=== PATIENT | female | born 1965 | race Caucasian/White ===

== ENCOUNTER 2018-09-04 12:25 | Emergency (ER) | payer BC ==
[2018-09-04 12:51] VITALS: BP 125/64
--- NOTE | 2018-09-04 13:06 | UC ---
Throat Pain/Nasal Bimal HPI - HPI Summary HPI Summary: 53 year old female presents with onset of sore throat 5 days ago. States sore throat subsided but has developed nasal congestion, yellow nasal drainage, sinus pressure, and occasional productive cough for yellow sputum over past 4 days. Denies fever, chills, ear pain, dysphagia, chest pain, SOB, wheezing, abdominal pain, nausea, or vomiting. Patient is a 1 PPD smoker. - History of Current Complaint Chief Complaint: UCRespiratory Stated Complaint: SINUS COMPLAINT Time Seen by Provider: 09/04/18 12:59 Hx Obtained From: Patient Hx Last Menstrual Period: Age 40 Onset/Duration: Gradual Onset, Lasting Days - 5 Severity: Moderate Pain Intensity: 7 Cough: Productive Associated Signs & Symptoms: Positive: Sinus Discomfort, Nasal Discharge. Negative: Dysphagia, Wheezing, Hoarseness, Fever, Vomiting, Rash - Allergies/Home Medications Allergies/Adverse Reactions: Allergies Allergy/AdvReac Type Severity Reaction Status Date / Time No Known Allergies Allergy Verified 09/04/18 12:46 Home Medications: Home Medications Metoprolol Tartrate TAB* [Lopressor TAB*] 1 tab DAILY 09/04/18 [History Confirmed 09/04/18] Propafenone HCl [Propafenone HCl ER] 1 cap BID 09/04/18 [History Confirmed 09/04] PMH/Surg Hx/FS Hx/Imm Hx Previously Healthy: Yes Other Cardiovascular History: AV node re-entrant tachycardia - Surgical History Surgical History: Yes Surgery Procedure, Year, and Place: Cardiac Ablation - Family History Family History: Noncontributory - Social History Occupation: Employed Full-time Lives: With Family Alcohol Use: Rare Substance Use Type: None Smoking Status (MU): Heavy Every Day Tobacco Smoker Amount Used/How Often: 1 ppd Length of Time of Smoking/Using Tobacco: started ~ age 10 When Did the Patient Quit Smoking/Using Tobacco: on Chantix now Household Exposure Type: Cigarettes - Immunization History Most Recent Tetanus Shot: unsure Review of Systems Constitutional: Negative Skin: Negative Eyes: Negative ENT: Sore Throat, Nasal Discharge, Sinus Congestion, Sinus Pain/Tenderness Respiratory: Cough Cardiovascular: Negative Gastrointestinal: Negative Is Patient Immunocompromised?: No All Other Systems Reviewed And Are Negative: Yes Physical Exam Triage Information Reviewed: Yes Appearance: Well-Appearing, No Pain Distress, Obese Vital Signs: Initial Vital Signs Temp 98.7 F 09/04/18 12:47 Pulse 83 09/04/18 12:47 Resp 21 09/04/18 12:47 BP 125/64 09/04/18 12:47 Pulse Ox 97 09/04/18 12:47 Eyes: Positive: Conjunctiva Clear. Negative: Discharge ENT: Positive: Hearing grossly normal, Pharyngeal erythema - Mild with cobblestoning, Nasal congestion, Nasal drainage, TMs normal, Tonsillar swelling - 1+, Sinus tenderness - maxillary, Uvula midline. Negative: Tonsillar exudate Neck: Positive: Supple, Nontender, No Lymphadenopathy Respiratory: Positive: Lungs clear, Normal breath sounds, No respiratory distress Cardiovascular: Positive: RRR, No Murmur Neurological: Positive: Alert Skin Exam: Normal Throat Pain/Nasal Course/Dx - Course Course Of Treatment: 53 year old female with 5 day history of URI symptoms. Afebrile. Exam consistent with a viral URI/sinuisits. Recommend symptomatic treatment. She is to return here of follow up with PCP if symptoms persist. Warning symptoms reviewed. Verbalizes understanding and agrees with POC. - Differential Dx/Diagnosis Provider Diagnoses: acute sinusitis Discharge - Sign-Out/Discharge Documenting (check all that apply): Patient Departure All imaging exams completed and their final reports reviewed: No Studies - Discharge Plan Condition: Stable Disposition: HOME Patient Education Materials: Sinusitis (ED) Forms: *Work Release Referrals: No Primary Care Phys,NOPCP [Primary Care Provider] - Additional Instructions: Your history and exam are consistent with upper respiratory infection with sinusitis. Viral infections do not respond to antibiotics and typically run their course over 7-10 days. Use a saline rinse kit such as Neti Pot or NeilMed at least twice a day. If you cannot tolerate the rinses then using a saline nasal spray several times a day can help keep secretions thin and promote drainage. Start fluticasone nasal spray 2 sprays each nostril once a day. Take acetaminophen (Tylenol) or ibuprofen (Advil, Motrin) according to directions as needed for fever or pain. Return here or follow-up with your primary care provider in 7 days if symptoms persist. Seek immediate medical attention if you have a persistent fever greater than 100.5 F despite taking acetaminophen or ibuprofen, have difficulty breathing, chest pain, or have any worsening of symptoms. - Billing Disposition and Condition Condition: STABLE Disposition: Home
== END 2018-09-04 13:30 | disposition home or self-care (01) ==
LOC: UCCORT 12:25
DX: J01.90 Acute sinusitis, unspecified (principal); I47.1 Supraventricular tachycardia; F17.210 Nicotine dependence, cigarettes, uncomplicated
CPT/HCPCS: 99211; G0463